=== PATIENT | female | born 1960 | race Caucasian/White ===

== ENCOUNTER 2018-06-27 12:28 | Outpatient (RCR) | payer MEDICARE, MEDICAID ==
[~2018-06-27] VITALS: Ht 162.6 cm; Wt 72.6 kg
[2018-06-27] MEDS ORDERED: CATHETER FLUSH 10 ML SYR IV PRN (13:00)
[2018-06-27] MEDS ORDERED: REGADENOSON 0.4 MG/5 ML SYR (LEXISCAN) IV ONE ×2 (13:33→13:45)
[2018-06-27 13:37] VITALS: BP 119/83
[2018-06-27 13:40] VITALS: BP 127/85
--- NOTE | 2018-06-27 23:54 | STRESS TEST ---
DATE OF SERVICE: 06/27/2018 LEXISCAN MYOVIEW STRESS TEST REPORT REFERRING PHYSICIAN: Leonel Ayala DO Baseline heart rate is 107. Baseline blood pressure 119/83. Baseline EKG sinus rhythm with frequent atrial premature contractions. In summary, the patient was injected with 9.41 mCi of technetium-99 Myoview and the resting images were obtained. Then, the patient received 0.4 mg of Lexiscan followed by 30.7 mCi of technetium-99 Myoview. Throughout the test, there were no EKG changes. The resting and stress images were reviewed and compared in the short axis, horizontal long axis and vertical long axis views. Review of the images showed good radiotracer uptake with no significant ischemia or infarction. SSS is 2, SDS 2, TID value 0.95. On the gated images, the left ventricle appeared to be normal in size with normal contractility. Calculated ejection fraction is 70%. CONCLUSION: 1. The patient tolerated Lexiscan well. 2. No ischemia or infarction on SPECT images. 3. Normal left ventricular size with normal contractility. Calculated ejection fraction is 72%. Job ID: [id number] DocumentID: [id number] Dictated Date: 06/27/2018 17:07:33 Landscaping Specialist Date: 06/27/2018 22:45:03 Dictated By: LUIZA SALVADOR MD
== END 2018-06-29 | disposition home or self-care (01) ==
LOC: CARD 12:28
PROVIDERS: ATTEND Internal Medicine Cardiovascular Disease
DX: I48.2 Chronic atrial fibrillation (principal); I10 Essential (primary) hypertension; E78.2 Mixed hyperlipidemia; E11.9 Type 2 diabetes mellitus without complications; I07.1 Rheumatic tricuspid insufficiency
CPT/HCPCS: 78452; 93017; 93225; 93226; 93306